=== PATIENT | female | born 1970 | race Caucasian/White ===

== ENCOUNTER 2022-03-06 22:14 | Emergency (ER) | payer BC ==
[~2022-03-06] VITALS: Ht 175.3 cm; Wt 80.7 kg
[2022-03-06 22:30] VITALS: BP_SYST 122
--- NOTE | 2022-03-06 22:39 | NUR ---
Patient to ER bed 8 to gown for evaluation. Side rails up. Report given to Reagan FERNANDO.
--- NOTE | 2022-03-06 22:59 | NUR ---
51 YR OLD AOX4, AMBULATORY WITH COMPLAINT OF LOW RIGHT SIDED BACK PAIN STATUS POST FALL TODAY ABOUT 10 HOURS AGO. PT STATES SHE HIT HER BACK ON WOOD, AND TOOK TYLENOL 3 AND LAID DOWN WITH NO PAIN RELIEF, ATTHE BEDSIDE. WILL MONITOR NEEDED
[2022-03-06] MEDS ORDERED: KETOROLAC TROMETHAMINE 60 MG/2 ML VIAL IM ONE (23:30)
[2022-03-06 23:54] LABS: BASOPHILS # (AUTO) 0.1 K/uL (0.0-0.2); BASOPHILS % (AUTO) 1.9 % (0.0-2.0); EOSINOPHILS % (AUTO) 0.4 % (0.0-4.0); HEMOGLOBIN 13.4 g/dL (12.0-16.0); LYMPHOCYTES # (AUTO) 1.4 K/uL (1.0-5.5); LYMPHOCYTES % (AUTO) 17.4 % (20.5-51.5); MEAN CORPUSCULAR HEMOGLOBIN 30 pg (27-31); MEAN CORPUSCULAR HGB CONC 34 % (32-36); MEAN CORPUSCULAR VOLUME 88 fL (79.0-98.0); MONOCYTES # (AUTO) 0.3 K/uL (0.0-1.0); MONOCYTES % (AUTO) 4.1 % (1.7-9.3); NEUTROPHILS # (AUTO) 5.9 K/uL (1.8-7.7); NEUTROPHILS % (AUTO) 76.2 % (40.0-70.0); PLATELET COUNT (AUTO) 223 K/uL (130-430); RED BLOOD CELL COUNT(AUTO) 4.55 MIL/uL (4.2-6.2); RED CELL DISTRIBUTION WIDTH 14.4 % (9.0-15.0); WHITE BLOOD COUNT (AUTO) 7.8 K/uL (4.8-10.8)
[2022-03-07 00:10] LABS: CALCIUM 8.1 mg/dL (8.4-11.0); CREATININE 0.92 mg/dL (0.55-1.30); POTASSIUM 3.8 mmol/L (3.5-5.1)
[2022-03-07 00:18] LABS: ALBUMIN 3.6 g/dL (3.4-4.8); TOTAL BILIRUBIN 0.2 mg/dL (0.0-1.0)
[2022-03-07 00:58] LABS: BILIRUBIN,URINE NEGATIVE (NEGATIVE); BLOOD, URINE NEGATIVE (NEGATIVE); CLARITY/URINE CLEAR (CLEAR); COLOR,URINE YELLOW (YELLOW); GLUCOSE,URINE NEGATIVE (NEGATIVE); KETONES,URINE NEGATIVE (NEGATIVE); LEUKOCYTE ESTERASE ,URINE NEGATIVE (NEGATIVE); NITRITE, URINE NEGATIVE (NEGATIVE); PROTEIN URINE NEGATIVE (NEGATIVE)
--- NOTE | 2022-03-07 02:01 | NUR ---
Patient given written and verbal discharge instructions and verbalizes understanding. ER MD discussed with patient the results and treatment provided. Patient in stable condition. ID arm band removed. IV catheter removed intact and dressing applied, no active bleeding. Rx of given. Patient educated on pain management and to follow up with PMD. Pain Scale 4/10 Opportunity for questions provided and answered. Medication side effect explained, all questions answered. pt discharged with all belongings
[2022-03-07] MEDS ORDERED: NAPR-1172 PO (02:02)
[2022-03-07] MEDS ORDERED: CYCL10TA24 PO (02:05)
== END 2022-03-07 02:29 | disposition home or self-care (01) ==
LOC: SED 22:14
DX: M54.50 Low back pain, unspecified (principal); W18.40XA Slipping, tripping and stumbling without falling, unspecified, initial encounter; Y93.89 Activity, other specified; Y92.89 Other specified places as the place of occurrence of the external cause; Y99.8 Other external cause status
CPT/HCPCS: 36415; 71045; 71100; 80053; 81003; 85025; 96372; 99284; J1885